=== PATIENT | male | born 1985 ===

== ENCOUNTER 2019-09-29 13:46 | Outpatient (REF) | payer MEDICAID, SELFPAY ==
[2019-09-30 17:26] LABS: COVID-19 RT-PCR Result NEGATIVE (Negative)
== END 2019-09-29 14:06 ==
LOC: NCHCN 13:46
PROVIDERS: PCP Nurse Practitioner Family; Visit Provider Nurse Practitioner Family
DX: J06.9 Acute upper respiratory infection, unspecified (principal)
CPT/HCPCS: U0003